=== PATIENT | male | born 1995 | race Caucasian/White ===

== ENCOUNTER 2019-01-01 23:36 | Emergency (ER) | payer OTHER ==
[~2019-01-01] VITALS: Ht 170.2 cm; Wt 59.0 kg
[2019-01-01 23:40] VITALS: Ht 170.2 cm; Wt 59.0 kg
[2019-01-02 00:03] LABS: BASOPHIL % 0.5 % (0-2); PLATELET COUNT 392 x10^3mcL (130-400); RED CELL DISTRIBUTION WIDTH 13.8 % (11.5-14.5)
[2019-01-02 00:12] LABS: CALCIUM 8.9 mg/dL (8.5-10.1); CARBON DIOXIDE 24.8 mmol/L (21-32); CHLORIDE SERUM 107 mmol/L (98-107); CREATININE SERUM 0.7 mg/dL (0.7-1.3); GFR1 > 60 mL/min; GLUCOSE SERUM 114 mg/dL (74-106); POTASSIUM SERUM 3.8 mmol/L (3.5-5.1); SODIUM SERUM 146 mmol/L (136-145)
[2019-01-02 00:19] LABS: ALBUMIN 4.8 g/dL (3.4-5.0); ALKALINE PHOSPHATASE 105 U/L (46-116); ALT/SGPT 27 U/L (16-63); AST/SGOT 19 U/L (15-37); BILIRUBIN TOTAL 0.3 mg/dL (0.20-1.00)
[2019-01-02 00:22] LABS: TOTAL PROTEIN, SERUM 8.6 g/dL (6.4-8.2)
[2019-01-02 01:10] LABS: AMPHETAMINE QUAL UR NONE DETECTED (See below)
[2019-01-02 03:39] VITALS: BP 131/67
== END 2019-01-02 03:39 | disposition other institution (70) ==
LOC: ED 23:36
PROVIDERS: Emergency Medicine
DX: F10.129 Alcohol abuse with intoxication, unspecified (principal)
CPT/HCPCS: 36415; G0480; J7030

== ENCOUNTER 2019-01-01 23:36 | Emergency (ER) | payer OTHER | END 2019-01-02 03:39 | disposition other institution (70) | LOC: ED 23:36 | DX: Z02.89 Encounter for other administrative examinations (principal) ==